=== PATIENT | female | born 1990 | race Caucasian/White ===

== ENCOUNTER 2016-10-21 08:16 | Emergency (ER) | payer MEDICAID ==
[2016-10-21] MEDS ORDERED: IBUPROFEN 600 MG TABLET PO ONE (08:44)
--- NOTE | 2016-10-21 09:15 | Emergency Department Record ---
History of Present Illness - General Chief Complaint: Headache Migraine Stated Complaint: SHARP PAIN IN HEAD Time Seen by Provider: 10/21/16 08:29 Source: Patient Mode of Arrival: Ambulatory Limitations: No limitations - History of Present Illness Initial Comments: The patient is here due to experiencing L sided neck and head pain for 3 days intermittently. She states she has had 3 episodes of pain, one 2 days ago and two episodes today. The pain originates in the L posterior neck and radiates to her L occipital area. The pain only lasts a single second and then resolves and is of mild to moderate intensity. She denies any visual changes, nausea, vomiting, arm or leg numbness, tingling or weakness. The patient did have some L are numbness which lasted a few minutes 3 days ago but that is not unusual for her since she has had a contraceptives placed in her L arm. Presently the patient is completely pain free with no symptoms. The patient states her mother has a hx of an aneurysm and is concerned she may have one also and would like to be checked out for one. She also has been doing a lot of work at home remodeling and has neck and shoulder soreness for the last week also. The patient also states she has had a mild cough recently but states she does not have head pain with the coughing. Onset/Timin -: Days(s) Onset Description: Sudden Location: Left, Neck, Occipital Severity: Moderate Severity scale (1-10): 4 Quality: Sharp Consistency: Intermittent Improves With: Nothing Worsens With: None Treatment Prior to Arrival Comment:: excedrin this AM - Related Data Previous Rx's Medication Instructions Recorded Amoxicillin/Potassium Clav 1 tab PO BID #14 tab 10/21/16 [Augmentin 875-125 Tablet] Naproxen [Naprosyn] 250 mg PO BID #14 tablet 10/21/16 Allergies Allergy/AdvReac Type Severity Reaction Status Date / Time hydrocodone bitartrate AdvReac VOMITING Verified 10/21/16 08:21 [From Vicodin] Travel Screening - Travel/Exposure Within Last 30 Days Have you traveled within the last 30 days?: No - Travel/Exposure Within Last Year Have you traveled outside the [place] in the last year?: No - Additonal Travel Details Have you been exposed to anyone with a communicable illness?: No - Travel Symptoms Symptom Screening: None Review of Systems Constitutional: Denies: Chills, Fever Eyes: Denies: Eye discharge ENT: Denies: Congestion Respiratory: Denies: Cough, Dyspnea Past Medical History - SOCIAL HISTORY Smoking Status: Current every day smoker Alcohol Use: Occasional Drug Use: None - RESPIRATORY Hx Respiratory Disorders: No - CARDIOVASCULAR Hx Cardio Disorders: No - NEURO Hx Neuro Disorders: No - GI Hx GI Disorders: Yes Hx Reflux: Yes - Hx Genitourinary Disorders: Yes Comment:: ovarian cysts - ENDOCRINE Hx Endocrine Disorders: No - MUSCULOSKELETAL Hx Musculoskeletal Disorders: No - PSYCH Hx Psych Problems: Yes Hx Anxiety: Yes Hx Behavior Problems: Yes (BiPolar) Hx Depression: Yes - HEMATOLOGY/ONCOLOGY Hx Hematology/Oncology Disorders: No Family Medical History Any Significant Family History?: Yes Hx Cancer: Grandparents Hx Diabetes: Grandparents Hx Seizures: Mother, Brother/Sister Hx Stroke: Mother Physical Exam - General General Appearance: Alert, Oriented x3, Cooperative, No acute distress (The patient is very pleasant, cooperative, smiling and laughing at times.) - Head Head exam: Atraumatic, Normocephalic, Normal inspection - Eye Eye exam: Normal appearance, PERRL, EOMI - ENT ENT exam: Normal exam, Mucous membranes moist, Normal external ear exam, Normal orophraynx, TM's normal bilaterally Throat exam: Normal inspection. negative: Tonsillar erythema, Tonsillar exudate - Neck Neck exam: Normal inspection, Full ROM, Tenderness (There is tenderness to the inferior posterior cervical area which does reproduce the patient's aching discomfort.). negative: Meningismus - Respiratory Respiratory exam: Normal lung sounds bilaterally. negative: Respiratory distress - Cardiovascular Cardiovascular Exam: Regular rate, Normal rhythm, Normal heart sounds - GI/Abdominal GI/Abdominal exam: Soft, Normal bowel sounds. negative: Tenderness - Extremities Extremities exam: Normal inspection, Full ROM, Normal capillary refill. negative: Tenderness - Neurological Neurological exam: Alert, Normal gait, Oriented X3, Other (Neg Drift and Rhomberg.). negative: Abnormal gait, Altered, Motor sensory deficit - Psychiatric Psychiatric exam: negative: Anxious, Depressed Course Vital Signs 10/21/16 08:22 Temperature 98.6 F Pulse Rate 104 H Respiratory 18 Rate Blood Pressure 130/78 Pulse Ox 97 - Reevaluation(s) Reevaluation #1: The patient is doing very well and is still pain free with no complaints. I did discuss the CT results with the patient and the frontal sinus opacification. I also did recommend a spinal tap to completely rule out a leaking aneurysm but the patient refused. She understands that by NOT doing the LP we could be missing a small leaking aneurysm which if not diagnosed early can lead to more pain, further bleeding, strokes, disability and . The patient also understands that we cannot be held liable for NOT doing the LP since she is neurologically intact with no complaints at this time. The patient's mother is still concerned that she may have an aneurysm due to the fact she had one for 10 years prior to surgery so the patient was instructed to F/U with her PCP to get an MRA ordered. I explained to them that we do not have an MRI machine here and cannot order the test from the ER. The patient understands and will F/U. 10/21/16 09:44 10/21/16 12:53 Medical Decision Making - Data Complexity MDM Data: X-Ray Ordered and/or Reviewed - Radiology Data Radiology results: Report reviewed (Head CT: Neg for any intracranial abnormality. L frontal sinus opacification.) Disposition Disposition: Discharge Clinical Impression: Muscle spasm Disposition: Home, Self-Care Condition: (1) Good Instructions: Muscle Spasm (ED) Additional Instructions: Please take the Naprosyn for pain and take the Augmentin as directed. Please see your PCP for follow up and for further testing. Return to the ER for any increased pain, fever, visual changes or vomiting. Prescriptions: Amoxicillin/Potassium Clav [Augmentin 875-125 Tablet] 1 tab PO BID #14 tab Naproxen [Naprosyn] 250 mg PO BID #14 tablet Forms: Patient Portal Access Time of Disposition: 09:49 Quality - Quality Measures Quality Measures: N/A - Blood Pressure Screening View Details: Yes Does Patient Have Any of the Following: No Blood Pressure Classification: Pre-Hypertensive BP Reading Systolic Measurement: 127 Diastolic Measurement: 66 Screening for High Blood Pressure: < Pre-Hypertensive BP, F/U Documented > [ G8950] Pre-Hypertensive Follow-up Interventions: Referral to alternative/primary care provider.
--- NOTE | 2016-10-21 20:49 | CT SCAN REPORT ---
EXAM: CT SCAN HEAD WO CONTRAST HISTORY: LEFT-SIDED HEADACHE AND TINGLING SENSATION FOR A WEAK. RIGHT HAND DOMINANT. TECHNIQUE: Axial CT scan of the head performed without IV contrast. COMPARISON: None. FINDINGS: No definite acute intracranial hemorrhage identified. No focal mass effect or midline shift apparent. No definite acute infarct or intracranial mass lesion is seen. There is complete opacification of the left frontal sinus. Elsewhere, the visualized paranasal sinuses appear clear. Mastoids and middle ear cavities also appear clear. No depressed calvarial fracture is evident. IMPRESSION: 1. NO DEFINITE ACUTE INTRACRANIAL HEMORRHAGE OR FOCAL MASS EFFECT EVIDENT. 2. COMPLETE OPACIFICATION OF THE LEFT FRONTAL SINUS, NONSPECIFIC. ELSEWHERE, THE PARANASAL SINUSES APPEAR CLEAR. JOB NUMBER: [id number] MTDD
== END 2016-10-21 10:02 | disposition home or self-care (01) ==
LOC: ER 08:16
DX: M62.838 Other muscle spasm (principal); R51 Headache; R20.2 Paresthesia of skin
CPT/HCPCS: 70450; 99283

== ENCOUNTER 2016-11-15 10:28 | Emergency (ER) | payer MEDICAID ==
--- NOTE | 2016-11-15 10:55 | Emergency Department Record ---
History of Present Illness - General Chief complaint: Pain Stated complaint: R ELBOW INJURY Time Seen by Provider: 11/15/16 10:51 Source: Patient Mode of Arrival: Ambulatory Limitations: No limitations - History of Present Illness Initial comments: 26 yo female patient presents with right elbow pain after hitting a door frame while playing with her dog. No other injuries. The pain is over the inside of the elbow. The injury occurred on Tuesday. She has pain with ROM or lifting objects. MD Complaint: Extremity pain, Extremity swelling, Joint pain, Joint swelling Onset/Timin -: Days(s) (3) Location: Right, Elbow History of Same: No Radiation: Proximal, Distal Severity scale (1-10): 8 Quality: Sharp Consistency: Other Worsens with: Exertion, Palpation, Walking Associated Symptoms: Denies other symptoms - Related Data Allergies Allergy/AdvReac Type Severity Reaction Status Date / Time hydrocodone bitartrate AdvReac VOMITING Verified 10/21/16 08:21 [From Vicodin] Travel Screening - Travel/Exposure Within Last 30 Days Have you traveled within the last 30 days?: No - Travel/Exposure Within Last Year Have you traveled outside the [place] in the last year?: No - Additonal Travel Details Have you been exposed to anyone with a communicable illness?: No - Travel Symptoms Symptom Screening: None Review of Systems Constitutional: Denies: Chills, Fever, Night sweats, Weakness Eyes: Denies: Eye discharge ENT: Denies: Congestion, Throat pain Respiratory: Denies: Cough, Dyspnea, Hemoptysis, Stridor, Wheezes Cardiovascular: Denies: Chest pain, Palpitations, Syncope Endocrine: Denies: Fatigue Gastrointestinal: Denies: Abdominal pain, Diarrhea, Nausea, Vomiting Genitourinary: Denies: Dysuria, Urgency Musculoskeletal: Reports: As per HPI, Arthralgia, Joint swelling, Myalgia Skin: Denies: Bruising, Change in color, Rash Neurological: Denies: Headache, Numbness, Weakness Psychiatric: Denies: Anxiety Hematological/Lymphatic: Denies: Blood Clots, Easy bleeding, Easy bruising, Swollen glands Past Medical History - SOCIAL HISTORY Smoking Status: Current every day smoker Alcohol Use: Occasional Drug Use: None - RESPIRATORY Hx Respiratory Disorders: No - CARDIOVASCULAR Hx Cardio Disorders: No - NEURO Hx Neuro Disorders: No - GI Hx GI Disorders: Yes Hx Reflux: Yes - Hx Genitourinary Disorders: Yes Comment:: ovarian cysts - ENDOCRINE Hx Endocrine Disorders: No - MUSCULOSKELETAL Hx Musculoskeletal Disorders: No - PSYCH Hx Psych Problems: Yes Hx Anxiety: Yes Hx Behavior Problems: Yes (BiPolar) Hx Depression: Yes - HEMATOLOGY/ONCOLOGY Hx Hematology/Oncology Disorders: No Family Medical History Any Significant Family History?: Yes Hx Cancer: Grandparents Hx Diabetes: Grandparents Hx Seizures: Mother, Brother/Sister Hx Stroke: Mother Physical Exam - General General Appearance: Alert, Oriented x3, Cooperative, No acute distress - Head Head exam: Atraumatic, Normocephalic, Normal inspection - Eye Eye exam: Normal appearance. negative: Conjunctival injection, Periorbital swelling - ENT ENT exam: Normal exam Ear exam: Normal external inspection Nasal Exam: Normal inspection Mouth exam: Normal external inspection Teeth exam: Normal inspection Throat exam: Normal inspection - Neck Neck exam: Normal inspection - Respiratory Respiratory exam: Normal lung sounds bilaterally. negative: Respiratory distress - Cardiovascular Cardiovascular Exam: Regular rate, Normal rhythm, Normal heart sounds - Rectal Rectal exam: Deferred - exam: Deferred - Extremities Extremities exam: Normal inspection, Normal capillary refill, Tenderness. negative: Full ROM Image of Full Body: 1 - tender medial elbow, intact skin, no significant deformity - Back Back exam: Reports: Normal inspection - Neurological Neurological exam: Alert, Oriented X3 - Psychiatric Psychiatric exam: Normal affect, Normal mood - Skin Skin exam: Dry, Intact, Normal color, Warm Course Vital Signs 11/15/16 10:40 Temperature 98 F Pulse Rate 104 H Respiratory 20 Rate Blood Pressure 133/92 Pulse Ox 96 - Reevaluation(s) Reevaluation #1: The XR was read as possible radial head fracture with anterior and posterior fat pad. She will be immobilized in a sling and referred to orthopedics at [facility] specialty clinic 11/15/16 11:39 Disposition Disposition: Discharge Clinical Impression: Contusion of elbow, right Qualifiers: Encounter type: initial encounter Qualified Code(s): S50.01XA - Contusion of right elbow, initial encounter Radial head fracture, closed Qualifiers: Encounter type: initial encounter Fracture alignment: nondisplaced Laterality: right Qualified Code(s): S52.124A - Nondisplaced fracture of head of right radius, initial encounter for closed fracture Disposition: Home, Self-Care Condition: (1) Good Instructions: Elbow Fracture (ED) Additional Instructions: Ice and elevate to minimize swelling Use the sling at all times for support and comfort No lifting or use of the right arm Referrals: BONIFACIO VELA [DOCTOR OF OSTEOPATH] - [facility] Specialty Clinics [Provider Group] Forms: Patient Portal Access Time of Disposition: 11:43 Quality - Quality Measures Quality Measures: N/A - Blood Pressure Screening Does Patient Have Any of the Following: No Blood Pressure Classification: Hypertensive Reading Systolic Measurement: 133 Diastolic Measurement: 92 Screening for High Blood Pressure: < Pre-Hypertensive BP, F/U Documented > [ G8950] Pre-Hypertensive Follow-up Interventions: Referral to alternative/primary care provider.
[2016-11-15] MEDS: IBUPROFEN 600 MG TABLET PO ONE (10:58)
--- NOTE | 2016-11-16 10:16 | RADIOLOGY REPORT ---
EXAM: RIGHT ELBOW HISTORY: INJURY. TECHNIQUE: Four views of the right elbow were obtained. Comparison: None. Encounter: Initial. FINDINGS: Abnormal elevated anterior fat pad with a visible posterior fat pad on the lateral view consistent with hemarthrosis and fracture. On the lateral view, there is irregularity in the region of the femoral head/proximal neck which may reflect a nondisplaced fracture. Positioning is suboptimal secondary to patient compliance. IMPRESSION: SOMEWHAT LIMITED DUE TO PATIENT POSITIONING, HOWEVER, THERE IS ABNORMAL ANTERIOR AND POSTERIOR FAT PADS CONSISTENT WITH HEMARTHROSIS AND UNDERLYING FRACTURE. POSSIBLE NONDISPLACED PROXIMAL RADIAL HEAD/NECK FRACTURE. JOB NUMBER: [id number] [facility]
== END 2016-11-15 11:59 | disposition home or self-care (01) ==
LOC: ER 10:28
DX: S52.124A Nondisplaced fracture of head of right radius, initial encounter for closed fracture (principal); W22.8XXA Striking against or struck by other objects, initial encounter
CPT/HCPCS: 99283

== ENCOUNTER 2017-03-04 09:47 | Emergency (ER) | payer MEDICAID ==
--- NOTE | 2017-03-04 10:16 | Emergency Department Record ---
History of Present Illness - General Chief Complaint: Headache Migraine Stated Complaint: HEADACHE/BACK PAIN Time Seen by Provider: 03/04/17 10:15 Source: Patient Mode of Arrival: Ambulatory Limitations: No limitations - History of Present Illness Initial Comments: The patient is here due to not feeling well for 2 days. The onset was yesterday with aching to her back and neck and mild posterior head pressure. The onset was gradual. She did vomit once yesterday but that is improved today. She denies any fever, ST, cough, AP, dysuria, ST, or nasal drainage. MD Complaint: Other Onset/Timin -: Hour(s) Onset Description: Awoke with symptoms Location: Neck, Occipital, Other Severity: Moderate Severity scale (1-10): 7 Quality: Aching, Similar to previous headaches Consistency: Constant Improves With: Nothing Worsens With: Other Context: Occured at rest Associated Symptoms: Vomiting Treatments Prior to Arrival: Other Treatment Prior to Arrival Comment:: Excedrin at 8:00 This AM - Related Data Previous Rx's Medication Instructions Recorded Cyclobenzaprine HCl [Flexeril] 10 mg PO TID PRN #20 tablet 03/04/17 Naproxen [Naprosyn] 500 mg PO BID #14 tablet. 03/04/17 Allergies Allergy/AdvReac Type Severity Reaction Status Date / Time hydrocodone bitartrate AdvReac VOMITING Verified 10/21/16 08:21 [From Vicodin] Travel Screening - Travel/Exposure Within Last 30 Days Have you traveled within the last 30 days?: No - Travel/Exposure Within Last Year Have you traveled outside the [place] in the last year?: No - Additonal Travel Details Have you been exposed to anyone with a communicable illness?: No - Travel Symptoms Symptom Screening: None Review of Systems Constitutional: Reports: Malaise. Denies: Chills, Fever Eyes: Denies: Eye discharge ENT: Denies: Congestion Respiratory: Denies: Cough, Dyspnea Past Medical History - SOCIAL HISTORY Smoking Status: Current every day smoker Drug Use: None - RESPIRATORY Hx Respiratory Disorders: No - CARDIOVASCULAR Hx Cardio Disorders: No - NEURO Hx Neuro Disorders: No - GI Hx GI Disorders: Yes Hx Reflux: Yes - Hx Genitourinary Disorders: Yes Comment:: ovarian cysts - ENDOCRINE Hx Endocrine Disorders: No - MUSCULOSKELETAL Hx Musculoskeletal Disorders: No - PSYCH Hx Psych Problems: Yes Hx Anxiety: Yes Hx Behavior Problems: Yes (BiPolar) Hx Depression: Yes - HEMATOLOGY/ONCOLOGY Hx Hematology/Oncology Disorders: No Family Medical History Hx Cancer: Grandparents Hx Diabetes: Grandparents Hx Seizures: Mother, Brother/Sister Hx Stroke: Mother Physical Exam - General General Appearance: Alert, Oriented x3, Cooperative, No acute distress - Head Head exam: Atraumatic, Normocephalic, Normal inspection - Eye Eye exam: Normal appearance, PERRL, EOMI. negative: Conjunctival injection - ENT Throat exam: Normal inspection. negative: Tonsillar erythema, Tonsillar exudate - Neck Neck exam: Normal inspection, Full ROM. negative: Meningismus (The neck is very supple.), Tenderness - Respiratory Respiratory exam: Normal lung sounds bilaterally. negative: Respiratory distress - Cardiovascular Cardiovascular Exam: Regular rate, Normal rhythm, Normal heart sounds - GI/Abdominal GI/Abdominal exam: Soft, Normal bowel sounds. negative: Tenderness - Extremities Extremities exam: Normal inspection, Full ROM, Normal capillary refill. negative: Tenderness - Back Back exam: Reports: Normal inspection, Paraspinal tenderness (there is mild diffuse paraspinal tenderness from the cervical area to the lumbar.), Other ( Neg Kernig's or Brudsinski's reflexes. ). Denies: Rash noted, Vertebral tenderness - Neurological Neurological exam: Alert, Normal gait, Oriented X3, Other (Neg Drift or Rhomberg.). negative: Abnormal gait, Motor sensory deficit - Skin Skin exam: negative: Rash Course Vital Signs 03/04/17 09:52 Temperature 98.3 F Pulse Rate [ 111 H Pulse Ox Probe] Respiratory 18 Rate Blood Pressure 150/91 [Left Arm] Pulse Ox 96 - Reevaluation(s) Reevaluation #1: The patient is resting comfortably and denies any new pain or discomfort. I did explain that the test results are normal and that she will need to F/U with her PCP for further evaluation. 03/04/17 11:47 Medical Decision Making - Data Complexity MDM Data: Labs Ordered and/or Reviewed - Lab Data Result diagrams: 03/04/17 11:04 03/04/17 11:04 Disposition Disposition: Discharge Clinical Impression: Myalgia Disposition: Home, Self-Care Condition: (2) Stable Instructions: Musculoskeletal Pain (ED) Additional Instructions: Please take the Naprosyn and Flexeril as directed. Please see your PCP next week for recheck. Return to the ER for any worsening symptoms. Prescriptions: Cyclobenzaprine HCl [Flexeril] 10 mg PO TID PRN #20 tablet PRN Reason: Pain Naproxen [Naprosyn] 500 mg PO BID #14 tablet.dr Forms: Patient Portal Access Time of Disposition: 11:51 Quality - Quality Measures Quality Measures: N/A - Blood Pressure Screening View Details: Yes Does Patient Have Any of the Following: No Blood Pressure Classification: Normal BP Reading Systolic Measurement: 115 Diastolic Measurement: 69 Screening for High Blood Pressure: < Normal BP, F/U Not Required > [G8783]
[2017-03-04] MEDS ORDERED: KETOROLAC 30 MG/ML VIAL IM ONE (10:23)
[2017-03-04 11:16] LABS: URINE APPEARANCE SL CLOUDY; URINE BILIRUBIN NEGATIVE (NEGATIVE); URINE BLOOD NEGATIVE (NEGATIVE); URINE COLOR YELLOW; URINE GLUCOSE (UA) NEGATIVE (NEGATIVE); URINE KETONE NEGATIVE (NEGATIVE); URINE LEUKOCYTE ESTERASE NEGATIVE (NEGATIVE); URINE NITRITE NEGATIVE (NEGATIVE); URINE PROTEIN NEGATIVE (NEGATIVE); URINE UROBILINOGEN 0.2 E.U./dL (0.20 - 1.00)
[2017-03-04 11:17] LABS: BASO % 0.4 % (0-6); EOS % 0.5 % (0-6); GRAN % 66.3 % (47-80); HEMATOCRIT 49.6 % (35.0-47.0); HEMOGLOBIN 17.3 gm/dl (11.6-16.0); LYMPH % 23.2 % (16-45); MEAN CELL VOLUME 93.9 fl (81-97); MEAN CORPUSCULAR HGB CONC 34.9 g/dl (32-36); MEAN PLATELET VOLUME 9.3 fl (7.4-10.4); MONO % 9.6 % (0-9); PLATELET COUNT 260 K/uL (130-400); RED BLOOD COUNT 5.28 M/uL (3.80-5.40); RED CELL DISTRIBUTION WIDTH 14.7 % (11.5-14.5); WHITE BLOOD COUNT W/O DIFF 5.5 K/uL (4.2-12.2)
[2017-03-04 11:18] LABS: HCG,QUALITATIVE URINE NEGATIVE (NEGATIVE); MEAN CORPUSCULAR HEMOGLOBIN 32.7 pg (27-33)
[2017-03-04 11:25] LABS: BLOOD UREA NITROGEN 7 mg/dL (6-20); CREATININE 0.6 mg/dL (0.5-0.9); EST GLOMERULAR FILTRATION RATE > 60 mL/min
[2017-03-04 11:26] LABS: TOTAL PROTEIN 8.3 g/dL (6.6-8.7)
[2017-03-04 11:28] LABS: GLUCOSE,RANDOM 101 mg/dL (74-109)
[2017-03-04 11:31] LABS: ALB/GLOB RATIO 1.3 (1.1-1.8); ALBUMIN 4.7 g/dL (4.0-5.0); ALKALINE PHOSPHATASE 95 U/L (35-104); ALT/SGPT 22 U/L (<33); AST/SGOT 25 U/L (10.0-35.0); C-REACTIVE PROTEIN 0.49 mg/dL (<0.5)
== END 2017-03-04 11:59 | disposition home or self-care (01) ==
LOC: ER 09:47
DX: M79.1 Myalgia (principal); R51 Headache; M54.2 Cervicalgia; M54.5 Low back pain
CPT/HCPCS: 99283 ×2; 96372; 85025; 86140; 80053; 81003; 81025; J1885

== ENCOUNTER 2017-05-14 13:02 | Emergency (ER) | payer MEDICAID ==
[2017-05-14] MEDS ORDERED: DEXAMETHASONE SOD PHOSPHATE 10MG/ML VIAL PO ONE (13:18)
--- NOTE | 2017-05-14 13:19 | Emergency Department Record ---
History of Present Illness - General Chief complaint: ENT Stated complaint: LT EAR PAIN Time Seen by Provider: 05/14/17 13:13 Source: Patient Mode of Arrival: Ambulatory Limitations: No limitations - History of Present Illness Initial comments: 27 yo female presents with left ear pain and left knee pain. She has had left ear pain that is sharp since Tuesday. No fever. No sore throat. It is tender behind and in front of the ear. NO swollen glands. Normal smokers cough. No ear drainage. No dental pain. She has additionally left knee pain for 2 weeks. It swells after being on her feet all day at work. No redness, warmth, no calf pain. MD complaint: Ear pain, Other (Left knee pain and swelling) Onset/Timin -: Days(s) Location: L ear Severity: Moderate Quality: Aching Consistency: Constant Improves with: None Worsens with: None Context- Dental: Other (Smoker) Context- Ear: Other Associated Symptoms: Pain with swallowing - Related Data Home Medications Medication Instructions Recorded Confirmed Last Taken Etonogestrel [Nexplanon] 68 mg SQ ASDIR 05/14/17 05/14/17 05/14/17 Previous Rx's Medication Instructions Recorded Amoxicillin 500Mg Capsule [Amoxil] 500 mg PO TID #30 tab 05/14/17 Ibuprofen [Motrin 600Mg] 600 mg PO Q6H #20 tablet 05/14/17 Allergies Allergy/AdvReac Type Severity Reaction Status Date / Time hydrocodone bitartrate AdvReac VOMITING Verified 05/14/17 13:15 [From Vicodin] Travel Screening - Travel/Exposure Within Last 30 Days Have you traveled within the last 30 days?: No - Travel/Exposure Within Last Year Have you traveled outside the [place] in the last year?: No - Additonal Travel Details Have you been exposed to anyone with a communicable illness?: No - Travel Symptoms Symptom Screening: None Review of Systems Constitutional: Denies: Chills, Fever, Malaise, Weakness Eyes: Denies: Eye discharge, Eye pain, Photophobia, Vision change ENT: Reports: Ear pain, Throat pain. Denies: Congestion, Dental pain, Epistaxis Respiratory: Denies: Cough (smoker's cough unchanged) Cardiovascular: Reports: Edema (left knee after work). Denies: Chest pain Endocrine: Denies: Fatigue Gastrointestinal: Denies: Abdominal pain, Diarrhea, Nausea, Vomiting Genitourinary: Denies: Dysuria, Urgency Musculoskeletal: Reports: As per HPI, Arthralgia, Joint swelling. Denies: Back pain, Myalgia Skin: Denies: Bruising, Change in color, Rash Neurological: Denies: Headache Psychiatric: Denies: Anxiety Hematological/Lymphatic: Denies: Blood Clots, Easy bleeding, Easy bruising Past Medical History - SOCIAL HISTORY Smoking Status: Current every day smoker Alcohol Use: Rare Drug Use: None - RESPIRATORY Hx Respiratory Disorders: No - CARDIOVASCULAR Hx Cardio Disorders: No - NEURO Hx Neuro Disorders: No - GI Hx GI Disorders: Yes Hx Reflux: Yes - Hx Genitourinary Disorders: Yes Comment:: ovarian cysts - ENDOCRINE Hx Endocrine Disorders: No - MUSCULOSKELETAL Hx Musculoskeletal Disorders: No - PSYCH Hx Psych Problems: Yes Hx Anxiety: Yes Hx Behavior Problems: Yes (BiPolar) Hx Depression: Yes - HEMATOLOGY/ONCOLOGY Hx Hematology/Oncology Disorders: No Family Medical History Any Significant Family History?: No Family Hx Comment (NOT TO BE USED IN PLACE OF ITEMS BELOW): mom -brain anerysms. Hx Cancer: Grandparents Hx Diabetes: Grandparents Hx Seizures: Mother, Brother/Sister Hx Stroke: Mother Physical Exam - General General Appearance: Alert, Oriented x3, Cooperative, No acute distress Limitations: No limitations - Head Head exam: Atraumatic, Normal inspection - Eye Eye exam: Normal appearance, PERRL. negative: Conjunctival injection, Periorbital swelling, Periorbital tenderness, Scleral icterus - ENT ENT exam: Normal exam, Mucous membranes moist, TM's normal bilaterally (L with mild erythema and mild fullness of TM compared to the right, no blood, no pus, no fluid) Ear exam: Normal external inspection. negative: Auricular hematoma, Auricular trauma, External canal tenderness Nasal Exam: Normal inspection Mouth exam: Normal external inspection Teeth exam: Normal inspection Throat exam: Normal inspection. negative: Tonsillar erythema, Tonsillomegaly, Tonsillar exudate, R peritonsillar mass, L peritonsillar mass - Neck Neck exam: Normal inspection. negative: Lymphadenopathy, Tenderness - Respiratory Respiratory exam: Normal lung sounds bilaterally. negative: Respiratory distress, Rhonchi, Stridor, Wheezes - Cardiovascular Cardiovascular Exam: Regular rate, Normal rhythm, Normal heart sounds - Rectal Rectal exam: Deferred - exam: Deferred - Extremities Extremities exam: Tenderness (anterior knee inferior to the patella, tender, no effusion, no laxity) - Neurological Neurological exam: Alert, Oriented X3 - Psychiatric Psychiatric exam: Normal affect, Normal mood - Skin Skin exam: Dry, Intact, Normal color, Warm Course - Reevaluation(s) Reevaluation #1: 05/14/17 13:50 Negative Left Knee Disposition Disposition: Discharge Clinical Impression: Otalgia of left ear Strain of knee Qualifiers: Encounter type: initial encounter Laterality: left Qualified Code(s): S86.912A - Strain of unspecified muscle(s) and tendon(s) at lower leg level, left leg, initial encounter Disposition: Home, Self-Care Condition: (1) Good Instructions: Knee Pain (ED) Additional Instructions: If the knee is tender or swells ice the knee for 15-20 minutes and elevate the leg to minimize the swelling Call your doctor for close followup in the next 2 weeks if not improving You may take motrin for the pain Prescriptions: Amoxicillin 500Mg Capsule [Amoxil] 500 mg PO TID #30 tab Ibuprofen [Motrin 600Mg] 600 mg PO Q6H #20 tablet Forms: Patient Portal Access Time of Disposition: 13:50 Quality - Quality Measures Quality Measures: N/A - Blood Pressure Screening Does Patient Have Any of the Following: No Blood Pressure Classification: Pre-Hypertensive BP Reading Systolic Measurement: 133 Diastolic Measurement: 79 Screening for High Blood Pressure: < Pre-Hypertensive BP, F/U Documented > [ G8950] Pre-Hypertensive Follow-up Interventions: Referral to alternative/primary care provider.
--- NOTE | 2017-05-14 19:04 | RADIOLOGY REPORT ---
EXAM: KNEE, LEFT 3 VIEWS HISTORY: SWELLING AFTER STANDING AT WORK. TECHNIQUE: Left knee three views. COMPARISON: None. ENCOUNTER: Initial. FINDINGS: No bone or joint abnormality identified. No fracture is seen. The joint spaces are well maintained. IMPRESSION: UNREMARKABLE LEFT KNEE. JOB NUMBER: [id number] MTDD
== END 2017-05-14 14:02 | disposition home or self-care (01) ==
LOC: ER 13:02
DX: S86.912A Strain of unspecified muscle(s) and tendon(s) at lower leg level, left leg, initial encounter (principal); H92.02 Otalgia, left ear; X50.1XXA Overexertion from prolonged static or awkward postures, initial encounter; F17.210 Nicotine dependence, cigarettes, uncomplicated
CPT/HCPCS: 99283 ×2; 73562; J1100

== ENCOUNTER 2018-03-09 16:28 | Emergency (ER) | payer SELFPAY ==
[2018-03-09] MEDS ORDERED: PROPARACAINE HCL OPTH 15ML BTL OPTH ONE (16:32)
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
== END 2018-03-09 18:03 | disposition home or self-care (01) ==
LOC: ER 16:28
DX: S02.2XXA Fracture of nasal bones, initial encounter for closed fracture (principal); S00.83XA Contusion of other part of head, initial encounter; J32.8 Other chronic sinusitis; H11.32 Conjunctival hemorrhage, left eye; Y04.0XXA Assault by unarmed brawl or fight, initial encounter; Y92.009 Unspecified place in unspecified non-institutional (private) residence as the place of occurrence of the external cause; F17.210 Nicotine dependence, cigarettes, uncomplicated
CPT/HCPCS: 70486; 99283; 99284

== ENCOUNTER 2018-08-07 09:48 | Emergency (ER) | payer MEDICAID ==
[2018-08-07] MEDS ORDERED: 0.9 % SODIUM CHLORIDE 1,000 ML BAG IV ONE (10:34)
[2018-08-07 10:52] LABS: HEMATOCRIT 51.8 % (35.0-47.0); HEMOGLOBIN 18.2 gm/dl (11.6-16.0); MEAN CELL VOLUME 105.5 fl (81-97); MEAN CORPUSCULAR HGB CONC 35.1 g/dl (32-36); MEAN PLATELET VOLUME 8.7 fl (7.4-10.4); PLATELET COUNT 283 K/uL (130-400); RED BLOOD COUNT 4.91 M/uL (3.80-5.40); WHITE BLOOD COUNT W/O DIFF 12.4 K/uL (4.2-12.2)
[2018-08-07] MEDS ORDERED: IBUPROFEN 600 MG TABLET PO ONE (10:58)
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
[2018-08-07 11:04] LABS: BLOOD UREA NITROGEN 2 mg/dL (6-20); CREATININE 0.6 mg/dL (0.5-0.9); EST GLOMERULAR FILTRATION RATE > 60 mL/min
[2018-08-07 11:07] LABS: GLUCOSE,RANDOM 152 mg/dL (74-109)
[2018-08-07 11:14] LABS: ABSOLUTE NEUTROPHIL COUNT 10.14
[2018-08-07 11:20] LABS: THYROID STIMULATING HORMONE 1.51 uIU/mL (0.270-4.20)
== END 2018-08-07 11:47 | disposition home or self-care (01) ==
LOC: ER 09:48
DX: F41.0 Panic disorder [episodic paroxysmal anxiety] (principal); R20.0 Anesthesia of skin; F17.210 Nicotine dependence, cigarettes, uncomplicated
CPT/HCPCS: 80048; 84443; 85027; 99284; J7030